=== PATIENT | male | born 1990 | race African-American/Black ===

== ENCOUNTER 2017-11-25 20:31 | Emergency (ER) | payer SELFPAY ==
[2017-11-25] MEDS ORDERED: HYDROCODONE/APAP 10/325 TAB ONE (21:01)
--- NOTE | 2017-11-25 21:36 | EDPHYS ---
Physician Documentation [facility] Name: Abran Tello Age: 27 yrs Sex: Male : 1990 Arrival Date: 11/25/2017 Time: 20:34 Bed 20 Private MD: ED Physician Maria Frey HPI: 11/25 21:06 This 27 yrs old Black Male presents to ER via Wheelchair with complaints of Foot Injury.rh1 21:06 The patient presents with pain, that is acute, swelling, tenderness. The complaints rh1 affect the left Achilles. Context: The problem was sustained outdoors, resulted from planting foot and jumping up, the patient is not able to bear weight, the patient is not able to ambulate, Problem is a result from a previous injury: No. Onset: The symptoms/episode began/occurred just prior to arrival. Modifying factors: The symptoms are alleviated by remaining still, the symptoms are aggravated by weight bearing, plantar flexion of foot. Associated signs and symptoms: Pertinent positives: swelling, weakness, Pertinent negatives numbness, tingling. Treatment prior to arrival includes: no previous treatment. Severity of symptoms: At their worst the symptoms were moderate, in the emergency department the symptoms are unchanged. The patient has experienced a previous episode, at right foot. The patient has not recently seen a physician. Pt. reports he was playing basketball, planted his left foot and jumped up, feeling a tear/pop at left achilles. Reports similar symptoms at right several years ago. Denies any trauma to ankle, no fall. . Historical: - Allergies: 20:52 No Known Allergies; la1 - PMHx: 20:52 None; la1 - Immunization history:: Adult Immunizations up to date. - Social history:: Smoking status: Patient uses tobacco products, smokes one-half pack cigarettes per day. ROS: 21:06 Constitutional: Negative for fever rh1 21:06 MS/extremity: Positive for decreased range of motion, pain, swelling, tenderness, Negative for contusion, erythema, paresthesias. 21:06 Skin: Negative for discoloration. 21:06 Neuro: Negative for numbness, tingling. 21:06 All other systems are negative. Exam: 21:06 Constitutional: This is a well developed, well nourished patient who is awake, alert, rh1 and in no acute distress. Head/Face: Normocephalic, atraumatic. Neck: Trachea midline, and no cervical lymphadenopathy. Supple, full range of motion without nuchal rigidity. No Meningismus. Cardiovascular: Regular rate and rhythm with a normal S1 and S2. No gallops, murmurs, or rubs. No JVD. No pulse deficits. Respiratory: Lungs have equal breath sounds bilaterally, clear to auscultation. No rales, rhonchi or wheezes noted. No increased work of breathing. Abdomen/GI: Soft, non-tender, with normal bowel sounds. No distension. No guarding or rebound. No evidence of tenderness throughout. Back: No spinal tenderness. No costovertebral tenderness. Full range of motion. Skin: Warm, dry with normal turgor. Normal color with no rashes, no lesions, and no evidence of cellulitis. 21:06 Musculoskeletal/extremity: Extremities: grossly normal except: noted in the left Achilles: swelling, tenderness, mild swelling with moderate tenderness approx. 4 - 6 cm proximal to eft achilles insertion site; minimal plantar flexion with albrecht's test, ROM: full active range of motion, in the right leg, left hip and left knee, limited active range of motion, in the left Achilles, with plantarflexion, limited active range of motion due to pain, in the dorsum of left foot, with plantarflexion, limited passive range of motion due to pain, in the dorsum of left foot, pain at left achilles distal calf with dorsiflexion/extension of left ankle, Pulses: noted to be 2+ in the right posterior tibial artery, right dorsalis pedis artery, left posterior tibial artery and left dorsalis pedis artery, Perfusion: the extremity is pink, warm, with brisk capillary refill, toes at left foot, Sensation intact. 21:06 Neuro: Orientation: is normal, to person, place \T\ time. Mentation: is normal, lucid, able to follow commands, Motor: is normal, moves all fours, Sensation: is normal, no obvious gross deficits, numbness, is not appreciated, tingling, is not appreciated, Gait: antalgic with pain at left ankle. Vital Signs: 20:52 BP 150 / 100; Pulse 86; Resp 16; Temp 97.2; Pulse Ox 100% on R/A; Weight 127.01 kg; la1 Height 5 ft. 11 in. (180.34 cm); 21:51 BP 139 / 92; Pulse 82; Resp 18; Temp 97.2; Pulse Ox 100% on R/A; Pain 6/10; tl1 20:52 Body Mass Index 39.05 (127.01 kg, 180.34 cm) la1 MDM: 21:06 Patient medically screened. ma2 21:34 Data reviewed: vital signs, nurses notes, and as a result, I will discharge patient. rh1 Data interpreted: Pulse oximetry: on room air is 100 %. Interpretation: normal. Counseling: I had a detailed discussion with the patient and/or guardian regarding: the historical points, exam findings, and any diagnostic results supporting the discharge/admit diagnosis, the need for outpatient follow up, a orthopedic surgeon, to return to the emergency department if symptoms worsen or persist or if there are any questions or concerns that arise at home. 11/25 21:07 Order name: NPO; Complete Time: 21:21 ma2 11/25 21:11 Order name: Posterior Orthoglass Ankle Splint; Complete Time: 21:54 rh1 11/25 21:11 Order name: Crutches; Complete Time: 21:54 rh1 Administered Medications: 21:03 Drug: Comanche 10 mg-325 mg 1 tabs Route: PO; la1 21:54 Follow up: Response: No adverse reaction; Marked relief of symptoms; Pain is decreased tl1 Disposition: 11/26 05:43 Co-signature as Attending Physician, Maria Frey MD. ma2 Disposition: 11/25/17 21:35 Discharged to Home. Impression: Achilles tendinitis, left leg. - Condition is Stable. - Discharge Instructions: Elastic Bandage and RICE, Achilles Tendinitis. - Prescriptions for Naprosyn 500 mg Oral Tablet - take 1 tablet by ORAL route 2 times per day take with food; 30 tablet. - Work release form, Medication Reconciliation Form, Thank You Letter, Antibiotic Education, Prescription Opioid Use form. - Follow up: Jose Elias Haines MD; When: 2 - 3 days; Reason: Further diagnostic work-up, Recheck today's complaints, Continuance of care. Follow up: Emergency Department; When: As needed; Reason: Fever > 102 F, If symptoms return, Trouble breathing, Worsening of condition. - Problem is new. - Symptoms have improved. Signatures: Huseyin Zamorano RN RN la1 Lauryn Clay RN RN tl1 Helen Yuan, [employer]MIN[employer] TRACTOR TRAILER DRIVER rh1 Maria Frey MD MD ma2
--- NOTE | 2017-11-25 21:36 | ER ---
Nurse's Notes [facility] Name: Abran Tello Age: 27 yrs Sex: Male : 1990 Arrival Date: 11/25/2017 Time: 20:34 Bed 20 Private MD: Diagnosis: Achilles tendinitis, left leg Presentation: 11/25 20:51 Presenting complaint: Patient states: I was getting ready to launch on a jump in la1 basketball and felt/heard a loud pop behind my left ankle. I have popped my right Achilles twice and it felt like this. Transition of care: patient was not received from another setting of care. Onset of symptoms was November 25, 2017. Care prior to arrival: None. 20:51 Method Of Arrival: Wheelchair la1 20:51 Acuity: GREG 4 la1 Triage Assessment: 21:52 General: Appears in no apparent distress. uncomfortable. Injury Description:. tl1 Historical: - Allergies: 20:52 No Known Allergies; la1 - PMHx: 20:52 None; la1 - Immunization history:: Adult Immunizations up to date. - Social history:: Smoking status: Patient uses tobacco products, smokes one-half pack cigarettes per day. Screenin:35 Abuse screen: Denies threats or abuse. Denies injuries from another. Nutritional tl1 screening: No deficits noted. Tuberculosis screening: No symptoms or risk factors identified. Fall Risk Gait- Impaired (20 pts.). Assessment: 21:35 General: Appears in no apparent distress. Behavior is calm, cooperative, appropriate tl1 for age. Pain: Complains of pain in left Achilles. Neuro: Level of Consciousness is awake, alert, obeys commands, Oriented to person, place, time, situation. Cardiovascular: Denies chest pain. Respiratory: Airway is patent Trachea midline Respiratory effort is even, unlabored. GI: Abdomen is non-distended, Bowel sounds present X 4 quads. : No signs and/or symptoms were reported regarding the genitourinary system. EENT: No signs and/or symptoms were reported regarding the EENT system. Musculoskeletal: Tenderness present in left Achilles Reports pain in left Achilles. 21:53 Reassessment: Patient appears in no apparent distress at this time. Patient and/or tl1 family updated on plan of care and expected duration. Pain level reassessed. Patient is alert, oriented x 3, equal unlabored respirations, skin warm/dry/pink. Patient states feeling better. Patient states symptoms have improved. Vital Signs: 20:52 BP 150 / 100; Pulse 86; Resp 16; Temp 97.2; Pulse Ox 100% on R/A; Weight 127.01 kg; la1 Height 5 ft. 11 in. (180.34 cm); 21:51 BP 139 / 92; Pulse 82; Resp 18; Temp 97.2; Pulse Ox 100% on R/A; Pain 6/10; tl1 20:52 Body Mass Index 39.05 (127.01 kg, 180.34 cm) la1 ED Course: 20:34 Patient arrived in ED. do 20:52 Triage completed. la1 20:52 Arm band placed on left wrist. la1 21:06 Maria Frey MD is Attending Physician. ma2 21:08 Helen Yuan NP is PHCP. rh1 21:33 Lauryn Clay RN is Primary Nurse. tl1 21:33 No provider procedures requiring assistance completed. Patient did not have IV access tl1 during this emergency room visit. Orthoglass splint: Posterior short lleg splint applied on left leg. 21:35 Jose Elias Haines MD is Referral Physician. rh1 21:53 Patient has correct armband on for positive identification. tl1 Administered Medications: 21:03 Drug: Cutler 10 mg-325 mg 1 tabs Route: PO; la1 21:54 Follow up: Response: No adverse reaction; Marked relief of symptoms; Pain is decreased tl1 Outcome: 21:35 Discharge ordered by . rh1 21:52 Discharged to home via wheelchair, with crutches. tl1 21:52 Condition: good 21:52 Discharge instructions given to patient, Instructed on discharge instructions, follow up and referral plans. medication usage, crutch walking, Demonstrated understanding of instructions, follow-up care, crutch walking, Prescriptions given X 1. 21:54 Patient left the ED. tl1 Signatures: Huseyin Zamorano RN RN la1 Lauryn Clay RN RN tl1 Helen Yuan NP MANAGER NON PROFIT 1 Aishwarya Galvin Mohammad, MD MD [facility]
== END 2017-11-25 21:54 | disposition home or self-care (01) ==
LOC: ER 20:31
DX: M76.62 Achilles tendinitis, left leg (principal); F17.210 Nicotine dependence, cigarettes, uncomplicated
CPT/HCPCS: 99283